=== PATIENT | female | born 1945 | race Caucasian/White ===

== ENCOUNTER 2019-02-14 06:16 | Day surgery (SDC) | payer MEDICARE, OTHER ==
[~2019-02-14 06:16] MED LIST: BALANCED SALT IRRIG SOLN COMB1 500 ML, EPINEPHRINE-PF 1:1000 0.5 MG IO ONE
[2019-02-14] MEDS ORDERED: IRR STERIL WATER FOR IRR 1000 ML BOTTLE IR ONE (06:17)
[2019-02-14] MEDS ORDERED: IV LACTATED RINGERS SOLUTION 1,000 ML BAG IV ONE (06:17)
[2019-02-14] MEDS ORDERED: KETOROLAC 0.5% OPHT DROP 3 ML BOTTLE ONE (06:39)
[2019-02-14] MEDS ORDERED: PHENYLEPHRINE 2.5% OPHT DROP 2 ML BOTTLE ONE (06:39)
[2019-02-14] MEDS ORDERED: CYCLOPENTOLATE 1% OPHT DROP 2 ML BOTTLE ONE (06:39)
[2019-02-14] MEDS ORDERED: CIPROFLOXACIN 0.3% OPHT DROP 2.5 ML BOTTLE ONE (06:39)
[2019-02-14] MEDS ORDERED: TROPICAMIDE 1% OPHT DROP 3 ML BOTTLE ONE (06:39)
[2019-02-14] MEDS ORDERED: LIDOCAINE-MPF 2% 5 ML VIAL ONE (07:17)
[2019-02-14] MEDS ORDERED: TIMOLOL MALEATE 0.5% OPHT DROP 5 ML BOTTLE ONE (07:17)
[2019-02-14] MEDS ORDERED: MOXIFLOXACIN HCL 3 ML OPHT DROPS ONE (07:17)
[2019-02-14] MEDS ORDERED: TETRACAINE HCL 0.5% OPHT DROP 2 ML BOTTLE ONE (07:17)
[2019-02-14] MEDS ORDERED: NEO/POLYMYX B/DEXAME OPHT OINT 3.5 GM TUBE ONE (07:17)
[2019-02-14] MEDS ORDERED: HYALURONIDASE,OVINE 200 UNITS/ML VIAL ONE (07:18)
[2019-02-14] MEDS ORDERED: BUPIVACAINE PF 0.5% 30 ML VIAL ONE (07:18)
[2019-02-14] MEDS ORDERED: BALANCED SALT IRRIG SOLN COMB2 15 ML IRRIG.SOLN ONE (07:18)
[2019-02-14] MEDS ORDERED: HYALURONATE SODIUM 12.8 MG/0.8 ML DISP.SYRIN ONE (07:18)
[2019-02-14] MEDS ORDERED: CARBACHOL OPHT 1.5 ML VIAL IO ONE (07:19)
[2019-02-14] MEDS ORDERED: ALBUTEROL SULFATE 2.5 MG/3 ML NEBU ONE (07:29)
[2019-02-14] MEDS ORDERED: AMIODARONE HCL 200 MG TABLET PO ONE (07:30)
[2019-02-14] MEDS ORDERED: IPRATROPIUM BROMIDE 0.5 MG/2.5 ML NEBU ONE (07:34)
[2019-02-14] MEDS ORDERED: FENTANYL CITRATE 100 MCG/2 ML AMPUL ONE (07:45)
[2019-02-14] MEDS ORDERED: BALANCED SALT IRRIG SOLN COMB1 500 ML ONE (08:28)
[2019-02-14] MEDS ORDERED: ACETAzolamide 250 MG TABLET PO ONE (09:30)
== END 2019-02-14 10:20 | disposition home or self-care (01) ==
LOC: DS 06:16
PROVIDERS: ATTEND Ophthalmology
DX: H25.12 Age-related nuclear cataract, left eye (principal); R09.89 Other specified symptoms and signs involving the circulatory and respiratory systems; I70.0 Atherosclerosis of aorta; I48.2 Chronic atrial fibrillation; I11.0 Hypertensive heart disease with heart failure; I50.30 Unspecified diastolic (congestive) heart failure; K21.9 Gastro-esophageal reflux disease without esophagitis; E78.2 Mixed hyperlipidemia; M10.9 Gout, unspecified; J45.909 Unspecified asthma, uncomplicated; M81.0 Age-related osteoporosis without current pathological fracture; M47.26 Other spondylosis with radiculopathy, lumbar region; F41.9 Anxiety disorder, unspecified; F32.9 Major depressive disorder, single episode, unspecified; F15.90 Other stimulant use, unspecified, uncomplicated; Z79.899 Other long term (current) drug therapy; Z98.890 Other specified postprocedural states; Z87.01 Personal history of pneumonia (recurrent); Z95.810 Presence of automatic (implantable) cardiac defibrillator
CPT/HCPCS: 66984; 71045; 94664; J0171; J3010; J3471; J3490 ×2; J7120 ×2; J7321; V2632; A4217; A4663; J3590; J8499